=== PATIENT | male | born 1965 | race Caucasian/White ===

== ENCOUNTER 2024-10-15 19:08 | Emergency (ER) | payer OTHER | END 2024-10-15 19:44 | LOC: VM.ED 19:08 | DX: S00.83XA Contusion of other part of head, initial encounter (principal); S00.81XA Abrasion of other part of head, initial encounter; F10.120 Alcohol abuse with intoxication, uncomplicated; E66.9 Obesity, unspecified; Y90.9 Presence of alcohol in blood, level not specified; Z79.899 Other long term (current) drug therapy; W18.30XA Fall on same level, unspecified, initial encounter | CPT/HCPCS: 99284 ==

== ENCOUNTER 2024-10-20 12:55 | Day surgery (SDC) | payer OTHER ==
[2024-10-20] MEDS: Lactated Ringers 1,000 ML IV SCH (13:10)
[2024-10-20] MEDS ORDERED: Propofol 200 MG/20 ML SDV ONE ×4 (13:57→16:06)
[2024-10-20] MEDS ORDERED: fentaNYL 100 MCG/2 ML SDV ONE (13:57)
== END 2024-10-20 17:10 | disposition home or self-care (01) ==
LOC: VM.SDS 12:55
PROVIDERS: ATTEND Family Medicine
DX: Z12.11 Encounter for screening for malignant neoplasm of colon (principal); D12.0 Benign neoplasm of cecum; K63.5 Polyp of colon; F41.1 Generalized anxiety disorder; E66.9 Obesity, unspecified; Z68.37 Body mass index [BMI] 37.0-37.9, adult; Z98.84 Bariatric surgery status; Z79.899 Other long term (current) drug therapy
CPT/HCPCS: 00811; 45385; J2704; J3010; J7120

== ENCOUNTER 2025-08-03 12:54 | Day surgery (SDC) | payer OTHER ==
[~2025-08-03 12:54] MED LIST: Propofol 200 MG/20 ML SDV ONE; fentaNYL 100 MCG/2 ML SDV ONE
[2025-08-03] MEDS: Lactated Ringers 1,000 ML IV SCH (13:08)
== END 2025-08-03 16:27 | disposition home or self-care (01) ==
LOC: VM.SDS 12:54
PROVIDERS: ATTEND Family Medicine
DX: Z12.11 Encounter for screening for malignant neoplasm of colon (principal); D12.4 Benign neoplasm of descending colon; K51.40 Inflammatory polyps of colon without complications; K63.5 Polyp of colon; E66.9 Obesity, unspecified; Z80.0 Family history of malignant neoplasm of digestive organs; Z68.36 Body mass index [BMI] 36.0-36.9, adult; Z79.899 Other long term (current) drug therapy; Z86.0101 Personal history of adenomatous and serrated colon polyps
CPT/HCPCS: 00811; J2704; J3010; J7120